=== PATIENT | female | born 1985 | race Caucasian/White ===

== ENCOUNTER 2020-12-08 09:51 | Emergency (ER) | payer OTHER ==
[2020-12-08 10:01] VITALS: BP 113/71; PULSE 102; TEMP 98.3; BMI 28.8
== END 2020-12-08 13:32 | disposition home or self-care (01) ==
LOC: JERFT 09:51 → JER 09:51
DX: F30.8 Other manic episodes (principal); G47.00 Insomnia, unspecified
CPT/HCPCS: 84703; 99284-25